=== PATIENT | male | born 1990 | race Caucasian/White ===

== ENCOUNTER 2023-06-09 11:56 | Emergency (ER) | payer SELFPAY ==
[2023-06-09 11:57] VITALS: BP 174/94; PULSE 88; RESP 16; TEMP 36.3; O2SAT 100; BMI 26.4
--- NOTE | 2023-06-09 12:14 | EKG12_ITS ---
Test Reason : PALPS Blood Pressure : / mmHG Vent. Rate : 084 BPM Atrial Rate : 084 BPM P-R Int : 172 ms QRS Dur : 090 ms QT Int : 368 ms P-R-T Axes : 067 070 045 degrees QTc Int : 434 ms Normal sinus rhythm with sinus arrhythmia Normal ECG Confirmed by Jesus Giron ([id number]), market editor MONICA MARLEY ([id number]) on 06/12/2023 2:12:47 PM Referred By: Chip Bustamante Confirmed By:Jesus Giron
--- NOTE | 2023-06-09 12:50 | EDS_ITS ---
HPI History of Present Illness Chief Complaint: Palpitations Narrative Narrative: Presents for evaluation palpitation lightheadedness and tremors is currently subsided. He drank a large cup of coffee and a kick start drink right before work. And of not working was driving home when he felt symptoms. He drinks coffee daily he takes energy drinks 3-4 times a week. Typically works and able to burn it off however today did not work. [facility] Medical History Fracture Home Medications pantoprazole 40 mg tablet,delayed release (Protonix) 40 mg PO DAILY #30 tabs 10/01/20 [Rx Last Taken Unknown] Allergy/AdvReac Type Severity Reaction Status Date / Time No Known Allergies Allergy Verified 06/09/23 12:00 Family History (Updated 10/01/20 @ 12:30 by Karen Ko) Father Hypertension Social History Smoking Status: Current every day smoker tobacco type: cigarettes alcohol intake: never ROS ROS ED Constitutional Constitutional ED: Denies chills, fever(s) or sweats Eyes Eyes: Denies change in vision ENT ENT ED: Denies dysphagia or sore throat Cardiovascular Cardiovascular: Reports palpitations; Denies chest pain, leg edema or racing heartbeat Respiratory/Chest Respiratory/Chest: Denies cough, dyspnea or dyspnea on exertion Gastrointestinal Gastrointestinal: Denies abdominal pain, diarrhea, nausea or vomiting Genitourinary Genitourinary ED: Denies dysuria, hematuria or urinary frequency Musculoskeletal Musculoskeletal: Denies back pain, extremity pain or neck pain Integumentary Denies rash or wounds Neurologic Neurologic: Reports other Details: Tremors, resolved ; Denies headache(s), paresthesias or weakness EXAM Physical Exam Const Vital Signs: 06/09/23 11:57 06/09/23 12:34 06/09/23 12:36 Temperature 97.4 F L Temperature Source Temporal Pulse Rate 88 Respiratory Rate 16 Respiratory Effort Normal Non-Labored Normal Non-Labored Respiratory Pattern Normal Blood Pressure 174/94 H Blood Pressure Mean 120 Pulse Ox 100 Oxygen Delivery Method Room Air 06/09/23 12:56 Temperature 97.4 F L Temperature Source Pulse Rate 89 Respiratory Rate 16 Respiratory Effort Respiratory Pattern Blood Pressure 126/77 H Blood Pressure Mean 93 Pulse Ox 100 Oxygen Delivery Method MDM MDM MDM Narrative Medical decision making narrative: Interventions / MDM: Differential diagnosis: Palpitations, caffeine adverse reaction Diagnosis considered but do not suspect: N/A My EKG interpretation: Sinus rhythm 84, no ST or T wave changes. Imaging independently reviewed and interpreted by myself: N/A External documents reviewed: N/A Test considered but not ordered:N/A ED course: Symptoms resolved EKG normal. Discussed modest caffeine use. Discussed proper rest for work. Do not feel blood work is necessary at this time as he symptoms resolved. Follow-up with his doctor. All questions were answered. Re-evaluation: stable Disposition discussed with patient/family/significant other: Patient Case discussed with consulting clinician: N/A This note was generated with [employer] dictation software. It may contain incorrect words, spelling, and punctuation that were not noted in checking the note before signing. Discharge Plan Triage Chief Complaint: Palpitations ED Provider: Chip Bustamante Dx/Rx/DC Orders Clinical Impression: Caffeine adverse reaction, Palpitations Instructions: ED Palpitations Prescriptions: No Action pantoprazole [Protonix] 40 mg tablet,delayed release (DR/EC) 40 mg PO DAILY Qty: 30 0RF Primary Care Provider: Topher Lares Referrals: Topher Lares MD [Primary Care Provider] - 1 Week Activity Restrictions/Additional Instructions: EKG normal your symptoms subsiding. Likely caffeine induced. Try to decrease your caffeine intake, proper rest at home before work. Follow-up with your doctor. If symptoms recur does not subside, return to ED for reevaluation. Disposition Disposition: Home, Self Care Discharge Date/Time: 06/09/23 13:00
[2023-06-09 12:56] VITALS: BP 126/77; PULSE 89; RESP 16; TEMP 36.3; O2SAT 100
--- OUTSIDE RECORDS SUMMARY | 2023-06-09 13:36 | XMS RPT_ITS | CCD ---
Author Name Unknown Address [facility] [address] [place] [id number] Organization [facility] Care Team Providers Care Commercial Lines Account Executive Name Role Phone HEMA WONG DR Admitting Unavailable HEMA WONG DR Attending Unavailable NO, DOCTOR ON Referring Unavailable NO, DOCTOR ON Consulting Unavailable HEMA WONG DR Primary Care Unavailable HANBUTCH Zabala Admitting Unavailable HANBUTCH Zabala Attending Unavailable NO, DOCTOR ON Consulting Unavailable HANKATHRYN ZabalaRY T Primary Care Unavailable Results Test Name Value Interpretation Reference Range Facil ity Encounters Encounter Date Encounter Type Care Provider Facility Start: 06-15-2018 End: 06-15-2018 Patient encounter procedure BUTCH HAN [facility] Start: 12-26-2017 End: 12-26-2017 Patient encounter procedure HEMA WONG [facility] Payers Date Payer Category Payer Unknown [id number] 1990 Unknown [id number] Unknown Summary Purpose Family History No Family History Records Found Advance Directives No Advanced Directives Records Found Additional Source Comments (unrecognized sect ion and content) No Status Records Found INFORMATION SOURCE (unrecogn ized section and content) FOR RECORDS PERTAINING TO PATIENTS WHO ARE OR HAVE BEEN ENROLLED IN A CHEMICAL DEPENDENCY/SUBSTANCEABUSE PROGRAM, SOME INFORMATION MAY BE OMITTED. This clinical summary was aggregated from multiple sources. Caution should be exercised in using it in the provision of clinical care. This summary normalizes information from multiple sources, and as a consequence, information in this document may materially change the coding, format and clinical context of patient data. In addition, data may be omitted in some cases. CLINICAL DECISIONS SHOULD BE BASED ON THE PRIMARY CLINICAL RECORDS. [facility] [employer] [facility]. provides no warranty or guarantee of the accuracy or completeness of information in this document.
== END 2023-06-09 13:00 | disposition home or self-care (01) ==
LOC: ED 13:09
PROVIDERS: Emergency Provider Emergency Medicine; PCP Family Medicine; Referring Provider Emergency Medicine; Visit Provider Emergency Medicine
DX: R00.2 Palpitations (principal); T43.615A Adverse effect of caffeine, initial encounter; F17.210 Nicotine dependence, cigarettes, uncomplicated
CPT/HCPCS: 93005; 99283